=== PATIENT | male | born 1945 | race Caucasian/White ===

== ENCOUNTER 2023-04-11 09:39 | Outpatient (CLI) | payer MEDICARE, BC, SELFPAY | END 2023-04-11 09:40 | disposition home or self-care (01) | LOC: WOUND 09:42 | PROVIDERS: PCP Internal Medicine; Visit Provider Nurse Practitioner Family | DX: I87.311 Chronic venous hypertension (idiopathic) with ulcer of right lower extremity (principal); L97.812 Non-pressure chronic ulcer of other part of right lower leg with fat layer exposed; I87.2 Venous insufficiency (chronic) (peripheral); I89.0 Lymphedema, not elsewhere classified; R73.01 Impaired fasting glucose; E66.9 Obesity, unspecified; Z68.42 Body mass index [BMI] 45.0-49.9, adult | CPT/HCPCS: 11042; 36415; 83036; 99213 ==

== ENCOUNTER 2023-04-17 13:50 | Outpatient (CLI) | payer MEDICARE, BC, SELFPAY | END 2023-04-17 13:51 | disposition home or self-care (01) | LOC: WOUND 13:50 | PROVIDERS: PCP Internal Medicine; Visit Provider Family Medicine | DX: I87.311 Chronic venous hypertension (idiopathic) with ulcer of right lower extremity (principal); L97.812 Non-pressure chronic ulcer of other part of right lower leg with fat layer exposed; I89.0 Lymphedema, not elsewhere classified | CPT/HCPCS: 11042 ==

== ENCOUNTER 2023-05-08 14:18 | Outpatient (CLI) | payer MEDICARE, BC, SELFPAY | END 2023-05-08 14:19 | disposition home or self-care (01) | LOC: WOUND 14:18 | PROVIDERS: PCP Internal Medicine; Visit Provider Surgery | DX: I87.311 Chronic venous hypertension (idiopathic) with ulcer of right lower extremity (principal); L97.812 Non-pressure chronic ulcer of other part of right lower leg with fat layer exposed; I89.0 Lymphedema, not elsewhere classified | CPT/HCPCS: 99213 ==

== ENCOUNTER 2023-05-15 13:19 | Outpatient (CLI) | payer MEDICARE, BC, SELFPAY | END 2023-05-15 13:20 | disposition home or self-care (01) | LOC: WOUND 13:19 | PROVIDERS: PCP Internal Medicine; Visit Provider Surgery | DX: I87.311 Chronic venous hypertension (idiopathic) with ulcer of right lower extremity (principal); L97.812 Non-pressure chronic ulcer of other part of right lower leg with fat layer exposed; I87.2 Venous insufficiency (chronic) (peripheral) | CPT/HCPCS: 99212 ==

== ENCOUNTER 2024-12-04 12:34 | Outpatient (CLI) | payer MEDICARE, BC, SELFPAY | END 2024-12-04 12:35 | disposition home or self-care (01) | PROVIDERS: PCP Internal Medicine; Visit Provider Nurse Practitioner Family | DX: I87.313 Chronic venous hypertension (idiopathic) with ulcer of bilateral lower extremity (principal); L97.822 Non-pressure chronic ulcer of other part of left lower leg with fat layer exposed; L97.811 Non-pressure chronic ulcer of other part of right lower leg limited to breakdown of skin; I89.0 Lymphedema, not elsewhere classified | CPT/HCPCS: G0463 ==

== ENCOUNTER 2024-12-07 13:54 | Outpatient (CLI) | payer MEDICARE, BC, SELFPAY | END 2024-12-07 13:55 | disposition home or self-care (01) | LOC: WOUND 13:55 | PROVIDERS: PCP Internal Medicine; Visit Provider Nurse Practitioner Family | DX: I87.313 Chronic venous hypertension (idiopathic) with ulcer of bilateral lower extremity (principal); I89.0 Lymphedema, not elsewhere classified; L97.811 Non-pressure chronic ulcer of other part of right lower leg limited to breakdown of skin; L97.822 Non-pressure chronic ulcer of other part of left lower leg with fat layer exposed | CPT/HCPCS: 29581 ==

== ENCOUNTER 2024-12-11 10:18 | Outpatient (CLI) | payer MEDICARE, BC, SELFPAY | END 2024-12-11 10:19 | disposition home or self-care (01) | LOC: WOUND 10:18 | PROVIDERS: PCP Internal Medicine; Visit Provider Physician Assistant | DX: I87.313 Chronic venous hypertension (idiopathic) with ulcer of bilateral lower extremity (principal); I89.0 Lymphedema, not elsewhere classified; L97.812 Non-pressure chronic ulcer of other part of right lower leg with fat layer exposed; L97.822 Non-pressure chronic ulcer of other part of left lower leg with fat layer exposed | CPT/HCPCS: 97597 ==

== ENCOUNTER 2024-12-18 10:15 | Outpatient (CLI) | payer MEDICARE, BC, SELFPAY | END 2024-12-18 10:16 | disposition home or self-care (01) | LOC: WOUND 10:15 | PROVIDERS: PCP Internal Medicine; Visit Provider Nurse Practitioner Family | DX: I87.313 Chronic venous hypertension (idiopathic) with ulcer of bilateral lower extremity (principal); I89.0 Lymphedema, not elsewhere classified; L97.822 Non-pressure chronic ulcer of other part of left lower leg with fat layer exposed; L97.811 Non-pressure chronic ulcer of other part of right lower leg limited to breakdown of skin | CPT/HCPCS: 11042 ==

== ENCOUNTER 2024-12-25 10:12 | Outpatient (CLI) | payer MEDICARE, BC, SELFPAY | END 2024-12-25 10:13 | disposition home or self-care (01) | LOC: WOUND 10:12 | PROVIDERS: PCP Internal Medicine; Visit Provider Nurse Practitioner Family | DX: I87.312 Chronic venous hypertension (idiopathic) with ulcer of left lower extremity (principal); I89.0 Lymphedema, not elsewhere classified; L97.822 Non-pressure chronic ulcer of other part of left lower leg with fat layer exposed | CPT/HCPCS: 11042 ==

== ENCOUNTER 2025-01-01 10:09 | Outpatient (CLI) | payer MEDICARE, BC, SELFPAY | END 2025-01-01 10:10 | disposition home or self-care (01) | LOC: WOUND 10:10 | PROVIDERS: PCP Internal Medicine; Visit Provider Nurse Practitioner Family | DX: I87.312 Chronic venous hypertension (idiopathic) with ulcer of left lower extremity (principal); I89.0 Lymphedema, not elsewhere classified; L97.822 Non-pressure chronic ulcer of other part of left lower leg with fat layer exposed | CPT/HCPCS: 11042 ==

== ENCOUNTER 2025-01-05 08:14 | Outpatient (CLI) | payer MEDICARE, BC, SELFPAY | END 2025-01-05 08:15 | disposition home or self-care (01) | LOC: WOUND 08:15 | PROVIDERS: PCP Internal Medicine; Visit Provider Nurse Practitioner Family | DX: I87.312 Chronic venous hypertension (idiopathic) with ulcer of left lower extremity (principal); I89.0 Lymphedema, not elsewhere classified; L97.822 Non-pressure chronic ulcer of other part of left lower leg with fat layer exposed | CPT/HCPCS: 11042 ==

== ENCOUNTER 2025-01-15 10:15 | Outpatient (CLI) | payer MEDICARE, BC, SELFPAY | END 2025-01-15 10:16 | disposition home or self-care (01) | LOC: WOUND 10:15 | PROVIDERS: PCP Internal Medicine; Visit Provider Nurse Practitioner Family | DX: I87.303 Chronic venous hypertension (idiopathic) without complications of bilateral lower extremity (principal); I89.0 Lymphedema, not elsewhere classified | CPT/HCPCS: G0463 ==

== ENCOUNTER 2025-03-16 10:01 | Day surgery (SDC) | payer MEDICARE, BC, SELFPAY ==
[2025-03-16 11:01] VITALS: BP 178/95; PULSE 53; RESP 20; TEMP 37.3; O2SAT 98
[2025-03-16 11:03] VITALS: BMI 45.2
--- NOTE | 2025-03-16 11:06 | SUR.PREOP ---
pt has significant lower extremity edema knees to ankles. he has very thick toenails. states he thinks he has good sensation. felt me touching his feet. i felt good pulses in both feet
[2025-03-16] MEDS: OXYCODONE (CR) 10 MG TAB.ER.12H PO (11:52)
[2025-03-16] MEDS: ACETAMINOPHEN 500 MG TABLET 1000 MG PO (11:52)
--- NOTE | 2025-03-16 12:23 | SUR.PREOP ---
multiple attempts at iv start by both nursing and anesthesia, without success. Anesthesia consulting with surgeon
--- NOTE | 2025-03-16 13:12 | SUR.PREOP ---
Dr. Ramon called by Dr. Luna and Dr. Jimenez to consult about Central line placement. The decision was made to cancel the case today versus place the central line, for safety reasons. Dr. Luna discussed the plan with Pt and his . Upon leaving i reminded the patient that he was given Oxy 10 and to use his CPAP and not to drive
== END 2025-03-16 14:19 | disposition home or self-care (01) ==
LOC: OR 10:02 → MEDSURG 10:09 → OR 14:18
PROVIDERS: PCP Internal Medicine; Visit Provider Orthopaedic Surgery
PROC: (CPT 27447; principal; 2025-03-16 12:15)
DX: Z53.8 Procedure and treatment not carried out for other reasons (principal)
CPT/HCPCS: A9270; J3490